=== PATIENT | male | born 1985 | race American Indian/Alaskan Native ===

== ENCOUNTER 2017-11-11 12:03 | Emergency (ER) | payer SELFPAY ==
[2017-11-11] MEDS ORDERED: Ondansetron 4 MG/2 ML SDV IVPUSH ONE (13:05)
--- NOTE | 2017-11-11 13:08 | EDM.PDOCBH ---
ED HPI GENERAL MEDICAL PROBLEM - General Chief Complaint: Drug or Alcohol Abuse Stated Complaint: HAIM & EVAL FROM LONG TERM Time Seen by Provider: 11/11/17 13:06 Source of Information: Reports: Patient History Limitations: Reports: No Limitations - History of Present Illness INITIAL COMMENTS - FREE TEXT/NARRATIVE: pt broke probation and was found drunk. It appeared his etoh level might be quite high so he wa here to be cleared for longterm. Onset: Today Duration: Hour(s): Associated Symptoms: Reports: Other (Pt appears to be very intoxicated. ) - Related Data Allergies Allergy/AdvReac Type Severity Reaction Status Date / Time No Known Allergies Allergy Verified 11/11/17 12:11 Home Meds: Home Meds NK [No Known Home Meds] 11/11/17 [History] Past Medical History - Past Health History Medical/Surgical History: Denies Medical/Surgical History Social & Family History - Tobacco Use Smoking Status *Q: Unknown Ever Smoked ED ROS GENERAL - Review of Systems Review Of Systems: See Below Constitutional: Reports: No Symptoms HEENT: Reports: No Symptoms Respiratory: Reports: No Symptoms Cardiovascular: Reports: No Symptoms Endocrine: Reports: No Symptoms GI/Abdominal: Reports: No Symptoms : Reports: No Symptoms Musculoskeletal: Reports: No Symptoms Neurological: Reports: Other (pt is very intoxicated. ) Psychiatric: Reports: No Symptoms ED EXAM, BEHAVIORAL HEALTH - Physical Exam Exam: See Below Text/Narrative:: pt is very intoxicated and is having trouble ambulating. Exam Limited By: No Limitations General Appearance: Alert, Anxious, Other ( intoxicated) Ears: Normal TMs Nose: Normal Inspection Throat/Mouth: Normal Inspection Neck: Normal Inspection Respiratory/Chest: No Respiratory Distress Cardiovascular: Regular Rate, Rhythm GI/Abdominal: Soft, Non-Tender (Male) Exam: Penile Lesions Rectal (Males) Exam: Deferred Back Exam: Normal Inspection Psychiatric: Alert, Other ( intoxicated) COURSE, BEHAVIORAL HEALTH COMP - Course Vital Signs: Last Vital Signs Temp 35.4 C 11/11/17 12:08 Pulse 116 H 11/11/17 12:08 Resp 20 11/11/17 12:08 BP 142/96 H 11/11/17 12:08 Pulse Ox 97 11/11/17 12:08 Orders, Labs, Meds: Active Orders 24 hr Category Date Time Status DRUG SCREEN, URINE [URCHEM] Stat Lab 11/11/17 12:12 Ordered Sodium Chloride 0.9% [Normal Saline] 1,000 ml Med 11/11/17 13:15 Active IV ASDIRECTED Sodium Chloride 0.9% [Normal Saline] 1,000 ml Med 11/11/17 14:15 Active IV ASDIRECTED Medication Orders Sodium Chloride (Normal Saline) 1,000 mls @ 999 mls/hr IV ASDIRECTED [facility] Last Admin: 11/11/17 13:27 Dose: 999 mls/hr Sodium Chloride (Normal Saline) 1,000 mls @ 999 mls/hr IV ASDIRECTED ANA Laboratory Tests 11/11/17 11/11/17 11/11/17 Range/Units 12:23 13:04 13:04 WBC 6.2 (4.5-11.0) K/uL RBC 4.82 (4.30-5.90) M/uL Hgb 15.6 H (12.0-15.0) g/dL Hct 45.4 (40.0-54.0) % MCV 94 (80-98) fL MCH 32 H (27-31) pg MCHC 34 (32-36) % Plt Count 237 (150-400) K/uL Neut % (Auto) 34 L (36-66) % Lymph % (Auto) 58 H (24-44) % [place] % (Auto) 7 H (2-6) % Eos % (Auto) 0 L (2-4) % Baso % (Auto) 1 (0-1) % Sodium 149 H (140-148) mmol/L Potassium 3.5 L (3.6-5.2) mmol/L Chloride 111 H (100-108) mmol/L Carbon Dioxide 26 (21-32) mmol/L Anion Gap 15.5 H (5.0-14.0) mmol/L BUN 4 L (7-18) mg/dL Creatinine 0.9 (0.8-1.3) mg/dL Est Cr Clr Drug Dosing 129.33 mL/min Estimated GFR (MDRD) > 60 (>60) Glucose 158 H (74-106) mg/dL Calcium 8.2 L (8.5-10.1) mg/dL Total Bilirubin 0.4 (0.2-1.0) mg/dL AST 54 H (15-37) U/L ALT 26 (12-78) U/L Alkaline Phosphatase 105 (46-116) U/L Total Protein 7.3 (6.4-8.2) g/dL Albumin 4.0 (3.4-5.0) g/dL Globulin 3.3 (2.3-3.5) g/dL Albumin/Globulin Ratio 1.2 (1.2-2.2) Ethyl Alcohol 424 mg/dL Medications Generic Name Dose Route Start Last Admin Trade Name Freq PRN Reason Stop Dose Admin Sodium Chloride 1,000 mls @ 999 mls/hr 11/11/17 13:15 11/11/17 13:27 Normal Saline IV 999 mls/hr ASDIRECTED ANA Administration Sodium Chloride 1,000 mls @ 999 mls/hr 11/11/17 14:15 Normal Saline IV ASDIRECTED ANA Discontinued Medications Generic Name Dose Route Start Last Admin Trade Name Freq PRN Reason Stop Dose Admin Ondansetron HCl 4 mg 11/11/17 13:05 11/11/17 13:31 Zofran IVPUSH 11/11/17 13:06 4 mg ONETIME ONE Administration Medical Clearance: 11/11/17 14:50 Pt was given a liter of fluid. He is much more alert. We were not able to get a urine. He appears stable and he is cleared to go to the longterm. Departure - Departure Time of Disposition: 14:51 Disposition: Home, Self-Care 01 Condition: Fair Clinical Impression: Intoxication - Discharge Information Referrals: PCP,None [Primary Care Provider] - Forms: ED Department Discharge Care Plan Goals: pt may go to the longterm, push fluids. - My Orders Last 24 Hours: My Active Orders 11/11/17 12:12 DRUG SCREEN, URINE [URCHEM] Stat 11/11/17 13:15 Sodium Chloride 0.9% [Normal Saline] 1,000 ml IV ASDIRECTED 11/11/17 14:15 Sodium Chloride 0.9% [Normal Saline] 1,000 ml IV ASDIRECTED - Assessment/Plan Last 24 Hours: My Active Orders 11/11/17 12:12 DRUG SCREEN, URINE [URCHEM] Stat 11/11/17 13:15 Sodium Chloride 0.9% [Normal Saline] 1,000 ml IV ASDIRECTED 11/11/17 14:15 Sodium Chloride 0.9% [Normal Saline] 1,000 ml IV ASDIRECTED
[2017-11-11] MEDS ORDERED: Sodium Chloride 0.9% 1,000 ML IV SCH ×2 (13:15→14:15)
== END 2017-11-11 15:03 | disposition home or self-care (01) ==
LOC: JP.ED 12:03
DX: F10.129 Alcohol abuse with intoxication, unspecified (principal); Y90.8 Blood alcohol level of 240 mg/100 ml or more
CPT/HCPCS: 36415; 80053; 85025; 96361; 96374; 99284; G0480; J2405; J7040